=== PATIENT | female | born 1975 | race Caucasian/White ===

== ENCOUNTER 2016-04-07 08:25 | Day surgery (SDC) | payer BC, OTHER ==
[~2016-04-07 08:25] MED LIST: RINGERS SOLUTION,LACTATED 1,000 ML IV PRN
[2016-04-07] MEDS ORDERED: RINGERS SOLUTION,LACTATED 1,000 ML IV ONE (09:18)
[2016-04-07 09:44] LABS: Hematocrit 40.7 % (37.0-47.0); Hemoglobin 13.3 gm/dL (12.5-16.0); Mean Cell Volume 88.9 fl (78-100); Mean Corpuscular Hgb Conc 32.7 g/dl (32-36); Mean Platelet Volume 9.5 fl (6.0-9.5); Neutrophil # 4.4 K/mm3 (1.3-6.0); Neutrophil % 61.5 % (42-75.0); Platelet Count 471 K/mm3 (150-450); Red Blood Count 4.58 M/mm3 (4.2-5.4); Red Cell Distribution Width 13.4 % (11.5-14.0); White Blood Count 7.1 K/mm3 (4.0-10.5)
[2016-04-07] MEDS ORDERED: IBUPROFEN 600 MG TABLET PO PRN (10:34)
[2016-04-07] MEDS ORDERED: oxyCODONE HCL/ACETAMINOPHEN 1 TAB TABLET PO PRN (10:34)
--- NOTE | 2016-04-07 11:07 | OR ---
Operative Report - Dictated Report Narrative: Operative Report 04/07/16 Hysteroscopy Dilatation and Curettage Preoperative Diagnosis: Menorrhagia Postoperative Diagnosis: Menorrhagia Procedure: Hysteroscopy Dilatation and Curettage Surgeon: Virgen Rosario M.D. Anesthesia: Pancho Leal CRNA, IV sedation Findings: Uterine sound was 8 cm. There is no evidence of submucosal fibroid or endometrial polyp. Patient was at the end of her cycle today. Fluids: 400 ml EBL: Minimal Drains: None Complications: None Condition: Stable Pathology: Endometrial curettings Procedure: The patient was taken to the operating room with IV fluids running. She was placed in the dorsal lithotomy position after anesthesia was induced. A bivalve speculum was placed in the vagina. The anterior lip of the cervix was grasped with a single-tooth tenaculum. Uterine sound was passed into the endometrial cavity with ease. Uterine sound was 8 cm. The cervix was dilated with Garcia dilators. The hysteroscope was introduced into the endometrial cavity. The cavity was distended with normal saline. [place] were visualized bilaterally. There is no evidence of submucosal fibroid or endometrial polyp. The hysteroscope was removed. The cavity was sharply curetted without difficulty. The hysteroscope was once again introduced into the cavity. The cavity was completely curetted. The hysteroscope was removed. The single- tooth tenaculum was removed. Sites were hemostatic. The speculum was removed from the vagina. Sponge counts were correct 2. The patient tolerated the procedure well.
[2016-04-07 11:41] VITALS: BP 148/85
== END 2016-04-07 08:26 | disposition home or self-care (01) ==
LOC: AMB 08:25
PROVIDERS: ATTEND Obstetrics & Gynecology
PROC: 0UDB8ZX Extraction of Endometrium, Via Natural or Artificial Opening Endoscopic, Diagnostic (ICD-10-PCS; principal; 2016-04-07 10:05)
DX: N92.0 Excessive and frequent menstruation with regular cycle (principal); I10 Essential (primary) hypertension; J45.909 Unspecified asthma, uncomplicated; K21.9 Gastro-esophageal reflux disease without esophagitis; Z68.33 Body mass index [BMI] 33.0-33.9, adult

== ENCOUNTER 2016-06-21 04:43 | Emergency (ER) | payer BC ==
[2016-06-21] MEDS ORDERED: METOPROLOL TARTRATE 25 MG TABLET PO ONE (05:27)
[2016-06-21] MEDS ORDERED: METOPROLOL TARTRATE 25 MG TABLET ONE (05:29)
[2016-06-21] MEDS ORDERED: KETOROLAC TROMETHAMINE 30 MG/ML VIAL IM ONE (06:29)
[2016-06-21] MEDS ORDERED: KETOROLAC TROMETHAMINE 30 MG/ML VIAL ONE (06:33)
[2016-06-21 06:59] VITALS: BP 158/98
--- NOTE | 2016-06-21 07:03 | ERNOTE ---
Headache ER HPI - Narrative Date of Service: 06/21/16 - General Presenting Symptoms: headache, facial pain, "migraine", other - photophobia Time Seen by Provider: 06/21/16 04:57 Source: patient Exam Limitations: no limitations - Immun/Allergies/Home Medications Immunizations: IMMUNIZATION HX Immunizations Up to Date Yes History of Influenza Vaccine No Hx Pneumococcal Vaccination No Allergies/Adverse Reactions: Allergies pecan nut Allergy (Mild, Verified 04/07/16 08:51) Hives wheat Allergy (Mild, Verified 04/07/16 08:51) Hives adhesive tape Adverse Reaction (Mild, Verified 04/07/16 08:51) RASH lactose Adverse Reaction (Mild, Verified 04/07/16 08:51) GI latex Adverse Reaction (Mild, Verified 04/07/16 08:51) RASH STAINLESS STEEL Allergy (Intermediate, Uncoded 04/07/16 08:51) EDEMA Home Medications: HOME MEDICATIONS Ibuprofen [Motrin] 800 mg PO BID PRN 04/02/16 [Last Taken Unknown] L.acidoph,Paracasei, B.lactis [Probiotic] 2 each PO DAILY 04/02/16 [Last Taken Unknown] Ibuprofen [Motrin] 600 mg PO Q6H PRN #30 tab 04/07/16 [Last Taken Unknown] Loratadine 05/26/16 [Last Taken Unknown] Senna [place] 05/26/16 [Last Taken Unknown] Xulane Patch 05/26/16 [Last Taken Unknown] Nabumetone [Relafen] 500 mg PO BID #30 tab 06/21/16 [Last Taken Unknown] - History of Present Illness Narrative: Patient here for evaluation of severe barrientos, frontal with left sided pressure and worsening with movement. Patient has hx of Cervical stenosis. Review of Systems - Narrative Narrative: Repeat blood pressure was 155/89. Will monitor for further lowering blood pressure - Review of Systems Constitutional: Present: no symptoms reported, decreased activity level ENT: Present: no symptoms reported Cardiology: Present: no symptoms reported Gastrointestinal/Abdominal: Present: no symptoms reported Genitourinary: Present: no symptoms reported Musculoskeletal: Present: neck pain, other - known joint disease Neurological: Present: no symptoms reported Endocrine: Present: no symptoms reported Hematologic/Lymphatic: Present: no symptoms reported Psych: Present: no symptoms reported - Narrative Narrative: Patient does not have a pattern of chronic migraines. Most recently had increased, and describes some neck pain and degen disease in cervical spine. - Patient's Past Medical History Patient History - Medical: No pertinent hx, GERD, Other Patient History - Cardiac/Respiratory: No pertinent hx, Asthma, Hypertension, Other Patient History - Cancer: No Hx of Cancer Patient History - Surgical Procedures: Appendectomy, Cholecystectomy, , Tubal Ligation Patient History - Other: None LMP (Calendar): 03/31/16 - Family History Mother Family History - Medical: Diabetes Type 2, Hypothyroidism Family History - Cardiac/Respiratory: Hypertension, Hyperlipidemia, Myocardial Infarction, Other Family History - Cancer: No pertinent family hx Father Family History - Medical: , Other Family History - Cardiac/Respiratory: No pertinent hx Family History - Cancer: History Unknown Sister Family History - Medical: Diabetes Type 1, Fibromyalgia, Other Family History - Cardiac/Respiratory: Hypertension, Hyperlipidemia, Myocardial Infarction, Other Family History - Cancer: Other Brother Family History - Medical: Migraines Family History - Cardiac/Respiratory: No pertinent hx Family History - Cancer: No pertinent family hx - Social History Living Situations: home Abuse History: No History of abuse Psych History: No pertinent hx Smoking Status: Never smoker Alcohol Use: occasionally Drug Use: none - Immunizations Immunizations Up to Date: Yes Hx Pneumococcal Vaccination: No History of Influenza Vaccine: No Physical Exam - Physical Exam General Appearance: Present: wd/wn, alert, no apparent distress, mild distress Eye Exam: Normal inspection: bilateral, PERRL: bilateral, EOMI: bilateral Ears, Nose, Throat: Present: normal ENT inspection Neck: Present: normal inspection Respiratory: Present: no respiratory distress, normal breath sounds Cardiovascular/Chest: Present: regular rate, rhythm, no murmur Gastrointestinal/Abdominal: Present: normal bowel sounds, nontender, nondistended Rectal Exam: Present: deferred Back Exam: Present: normal inspection, normal range of motion, no CVA tenderness Extremity Exam: Present: normal inspection, non-tender, normal range of motion Neurological Exam: Present: alert, oriented, normal mood/affect, no motor/ sensory deficits Skin Exam: Present: normal color, warm/dry Lymphatic Exam: Present: no adenopathy Pelvic Exam: Present: deferred ED Progress - Date and Time Seen: Date and Time: 06/21/16 06:40 Patient continued with pain, blood pressure remains slightly elevated still, Cervical spine xrays reviewed with patient. Patient was advised to stop ibuprofen due to rebound headaches and renal effects and possible effect on blood pressure, rx for relafen will be written for pain control. - Vital Signs Patient's Vital Signs:: I have reviewed the patient's vital signs. Vital Signs: Vital Signs 06/21/16 04:46 Temperature 37.3 C Pulse Rate 103 H Respiratory 18 Rate O2 Sat by Pulse 98 Oximetry - X-Ray X-Ray #1 X-Ray: c-spine Interpretation: Interp. by me, Reviewed by me - findings discussed with patient - Progress/Reassessment Chief Complaint: Headache Progress:: Improved Plan - Plan Plan: Patient is stable for discharge to home. Departure Clinical Impression: Elevated BP without diagnosis of hypertension, Cervical (neck) region somatic dysfunction Headache Qualifiers: Headache type: tension-type Headache chronicity pattern: episodic headache Intractability: intractable Qualified Code(s): G44.211 - Episodic tension-type headache, intractable - Departure Disposition: Home self-care Instructions: Tension Headache, [id number], Cervical Radiculopathy, Degenerative Disk Disease Print Language: Dominican Additional Instructions: you were treated today with the following medications: Metoprolol 25 mg for your blood pressure and a related medication propranolol may be used to control migraines. Your pain was treated with ketorolac for pain control. A prescription for relafen has been provided for short term relief of headache it is recommended you follow up with Dr. Cortes for continued care and evaluation. Continue to monitor your blood pressures and record those for Dr. Cortes Your cervical spine film results have been discussed and require follow up with Dr. Cortes as well. Rest and continue to drink plenty of fluids. Referrals: Zenaida Cortes MD [Primary Care Provider] - Prescriptions: Nabumetone [Relafen] 500 mg PO BID #30 tab
== END 2016-06-21 06:59 | disposition home or self-care (01) ==
LOC: ER 04:43
DX: G44.211 Episodic tension-type headache, intractable (principal); R03.0 Elevated blood-pressure reading, without diagnosis of hypertension; M99.01 Segmental and somatic dysfunction of cervical region

== ENCOUNTER 2016-06-25 10:00 | Emergency (ER) | payer BC ==
[2016-06-25] MEDS ORDERED: LABETALOL HCL 5 MG/ML VIAL IV ONE (10:17)
[2016-06-25 10:26] LABS: Hematocrit 38.4 % (37.0-47.0); Hemoglobin 12.7 gm/dL (12.5-16.0); Mean Cell Volume 86.5 fl (78-100); Mean Corpuscular Hemoglobin 28.6 pg (27-31); Mean Corpuscular Hgb Conc 33.1 g/dl (32-36); Mean Platelet Volume 9.4 fl (6.0-9.5); Neutrophil # 3.4 K/mm3 (1.3-6.0); Neutrophil % 55.3 % (42-75.0); Platelet Count 451 K/mm3 (150-450); Red Blood Count 4.44 M/mm3 (4.2-5.4); White Blood Count 6.2 K/mm3 (4.0-10.5)
[2016-06-25 10:36] LABS: Prothrombin Time (Patient) 10.6 Seconds (9.4-11.4)
[2016-06-25 10:39] LABS: INR 1.02 INR (0.90-1.10); Partial Thrombolplastin Time 25.8 Seconds (24-32)
[2016-06-25 10:43] LABS: ALT 28 U/L (19-67); AST 24 U/L (0-48); Albumin * 3.5 gm/dl (3.4-5.0); Alkaline Phosphatase * 42 U/L (50-170); Anion Gap 14.1 mmol/L (6.8-13.8); BUN/Creatinine Ratio 18.1 (9.0-21.6); Bilirubin, Total 0.3 mg/dL (0.0-1.1); Blood Urea Nitrogen 15 mg/dL (3-23); Ca. Corrected For Albumin 8.7 mg/dL (8.4-10.2); Calcium * 8.6 mg/dL (7.9-10.9); Carbon Dioxide 26.7 mmol/L (24-32.6); Chloride 102 mmol/L (97-106); Glucose * 178 mg/dL (70-110); Potassium 3.8 mmol/L (3.4-4.6); Sodium 139 mmol/L (132-142); Total Protein 7.7 gm/dL (6.2-8.2); Troponin I Less than 0.017 ng/ml (0.00-0.10)
--- OUTSIDE RECORDS SUMMARY | 2016-06-25 10:58 | XMS REPORT | Continuity of Care Document ---
:1975 Author Organization [facility] ([facility]) Address [address] [place] [address] Phone [phone] Care Team Providers Name Role Phone Zenaida Cortes Primary Care Provider [phone] Source Comments This disclosure is being made pursuant to the Care Everywhere program, applicable federal and state laws, and may not contain all informaitonavailable regarding this patient.[facility] ([facility]) Active Allergies and Adverse Reactions Allergen Noted Date Severity Reactions Comments Adhesive Tape-Silicones 06/21/2016 Blisters Can tolerate paper tape/tegaderm. Latex 06/21/2016 Blisters Milk 06/21/2016 Diarrhea Other Agent 06/21/2016 OTHER Stainless Steel - Localized swelling with surgical jony Pecan Nut 06/21/2016 Urticaria (Hives) Current Medications Not on file Active Problems Not on file Most Recent Encounters Date Type Specialty Providers Description 06/21/2016 Hospital Encounter Emergency Medicine Nathalie Aly MD Dx: Other complicated headache syndrome (Primary Dx) Social History Tobacco Use Types Packs/Day Years Used Date Never Smoker Smokeless Tobacco: Never Used Alcohol Use Drinks/Week oz/Week Comments Yes Occasionally Last Filed Vital Signs Vital Sign Reading Time Taken Blood Pressure 155/112 06/21/2016 12:38 PM CDT Pulse 99 06/21/2016 12:38 PM CDT Temperature 37.1 C (98.8 F) 06/21/2016 12:38 PM CDT Respiratory Rate 20 06/21/2016 12:38 PM CDT Height 1.626 m (5' 4.02") 06/21/2016 12:53 PM CDT Weight 88.451 kg (195 lb) 06/21/2016 12:53 PM CDT Body Mass Index 33.46 06/21/2016 12:53 PM CDT Oxygen Saturation 100% 06/21/2016 12:38 PM CDT Plan of Care Health Maintenance Due Date Last Done Comments Hepatitis B Vaccine (1 of 3 - Primary Series) 1975 Tdap Vaccine 1985 Lipid Disorder Screening 1992 MMR Vaccine 1992 Td Vaccine 1992 Cervical Cancer Screening 2004 Mammogram 2014 Influenza Vaccine: Seasonal (Season Ended) 2016 Results from Last [address] BRAIN WO CONTRAST (61407) (06/21/2016 1:40 PM) Impressions Impression: No acute intracranial findings. This final report is in agreement with the critical and emergent preliminary findings reported by the vice president quality packer insulation. Narrative Procedure: CT BRAIN WO CONTRAST (42285) Indication: Sudden onset headache. Technique: Axial CT of the brain without IV contrast. Sagittal and coronal reformations are also provided for review. Comparison: None Findings: There is no evidence of acute large vascular distribution infarct, mass lesion or hemorrhage. The ventricles, cortical sulci and basal cisterns are symmetric and age appropriate. Normal brainstem and posterior fossa. No calvarial fractures. Procedure Note Anton, Incoming Imaging Results - WedJun 22, 2016 9:30 AM CDT Procedure: CT BRAIN WO CONTRAST (83512) Indication: Sudden onset headache. Technique: Axial CT of the brain without IV contrast. Sagittal and coronal reformations are also provided for review. Comparison: None Findings: There is no evidence of acute large vascular distribution infarct, mass lesion or hemorrhage. The ventricles, cortical sulci and basal cisterns are symmetric and age appropriate. Normal brainstem and posterior fossa. No calvarial fractures. IMPRESSION Impression: No acute intracranial findings. This final report is in agreement with the critical and emergent preliminary findings reported by the vice president quality packer insulation. DIFFERENTIAL (06/21/2016 1:24 PM) Component Value Range % Neutrophils-Auto Diff 57.1 % Neutrophils-Auto Diff 4360 9191-7919 /MM3 % Lymphocytes-Auto Diff 29.1 % Lymphocytes-Auto Diff 2220 875-3300 /MM3 % Monocytes-Auto Diff 11.4 % Monocytes-Auto Diff 870(H) 130-860 /MM3 % Eosinophils-Auto Diff 1.6 % Eosinophils-Auto Diff 120 40-390 /MM3 % Basophils 0.7 % Basophils-Auto Diff 50 10-136 /MM3 % Immature Granulocytes-Auto Diff 0.1 % Immature Granulocytes-Auto Diff 10 /MM3 Specimen Whole Blood CBC (COMPLETE BLOOD COUNT) (06/21/2016 1:24 PM) Component Value Range WBC Count 7.6 3.7-10.5 K/MM3 RBC Count 4.69 4.00-5.20 M/MM3 Hemoglobin 13.4 11.9-15.5 g/dL Hematocrit 41 35-47 % MCV (Mean Corpuscular Volume) 87 82-99 FL MCH (Mean Corpuscular Hemoglobin) 29 25-35 PG MCHC (Mean Corpuscular Hemoglobin Concentration) 33 32-36 % Platelet Count 449(H) 150-400 K/MM3 MPV (Mean Platelet Volume) 9.4 9.4-12.3 FL RBC Dist Width-STD 41.6 36.4-46.3 FL RBC Distrib Width 13.2 9.0-14.5 % Nucleated RBC 0 /100 WBC Specimen Whole Blood BASIC METABOLIC PANEL W/ CALCIUM (CHEM 8) (06/21/2016 1:24 PM) Component Value Range Sodium 140 135-145 mEq/L Potassium 3.8 3.5-5.0 mEq/L Chloride 101 95-107 mEq/L CO2 25 22-29 mEq/L BUN 9(L) 10-20 mg/dL Creatinine 0.6Comment: 0.5-1.0 mg/dL Creatinine switched to enzymatic method on 07/22/2010.GFR equation switched to IDMS-traceable MDRD equation on 07/22/2010. Calculated GFR values are not valid in clinical settings where serum creatinine is changing. Glucose 114(H)Comment: 65-99 mg/dL The Expert Committee on the Diagnosis and Classification of Diabetes has defined impaired fasting glucose as greater than or equal to 100 mg/dL but less than 126 mg/dL.(Diabetes Care 28 (Suppl 1)S41,2005) Calcium 9.1 8.5-10.5 mg/dL Anion Gap 14 mEq/L Calculated GFR >90 >60 mL/min/1.73 m2 Specimen Blood PT/INR (PROTHROMBIN TIME/INR) VENOUS (06/21/2016 1:24 PM) Component Value Range PT (Prothrombin Time) 10 9-12 secs INR 0.9 <4.0 Specimen Blood PTT (PARTIAL THROMBOPLASTIN TIME) (06/21/2016 1:24 PM) Component Value Range PTT 23 22-31 secs Specimen Blood CBC WITH DIFFERENTIAL (06/21/2016 1:24 PM) Specimen Whole Blood Narrative The following orders were created for panel order CBC WITH DIFFERENTIAL. Procedure Abnormality Status --------- ------ CBC (COMPLETE BLOOD COUNT)[[id number]] AbnormalFinal result DIFFERENTIAL[[id number]] AbnormalFinal result Please view results for these tests on the individual orders.
--- NOTE | 2016-06-25 12:25 | ERNOTE ---
Chest Pain/Cardiac HPI Date of Service: 06/25/16 Chief Complaint: Chest Pain Time Seen by Provider: 06/25/16 10:23 Source: patient Exam Limitations: no limitations Immunizations: IMMUNIZATION HX Immunizations Up to Date Yes History of Influenza Vaccine No Hx Pneumococcal Vaccination No Allergies/Adverse Reactions: Allergies pecan nut Allergy (Mild, Verified 06/25/16 10:47) Hives wheat Allergy (Mild, Verified 06/25/16 10:47) Hives adhesive tape Adverse Reaction (Mild, Verified 06/25/16 10:47) RASH lactose Adverse Reaction (Mild, Verified 06/25/16 10:47) GI latex Adverse Reaction (Mild, Verified 06/25/16 10:47) RASH STAINLESS STEEL Allergy (Intermediate, Uncoded 06/25/16 10:47) EDEMA Home Medications: HOME MEDICATIONS L.acidoph,Paracasei, B.lactis [Probiotic] 1 each PO DAILY 06/25/16 [Last Taken Unknown] Loratadine [Claritin] 25 mg PO DAILY 06/25/16 [Last Taken Unknown] Metoprolol Succinate [Toprol Xl] 50 mg PO DAILY 06/25/16 [Last Taken Unknown] Senna [place] [Senna Leaves] 454 gm PO DAILY 06/25/16 [Last Taken Unknown] Narrative: 40-year-old female presents to the emergency room for left-sided chest pain. Female states that this chest pain started yesterday at 10:00 PM and has progressively gotten worse. Patient states that she is frequently checking her blood pressure all night and morning in regards to her chest pain. One near- syncopal episode while at home and after that she did call 911. Patient states that she had one episode of rapid heartbeat as well as a ambulance that lasted less than 5 seconds per EMS Date (Duration): 06/25/16 Timing: intermittent Severity/Quality: pressure Location: central Chest Pain Radiation: no radiation, shoulders - left Activities at Onset: none Modifying Factors - Improves: Absent: nitroglycerin Nitro Today/Relief: 0.4 mg x 1, provided by ED Aspirin Treatment Today: 81 mg x 4, provided at home Associated Symptoms: Absent: shortness of breath, palpitations, nausea, vomiting , abdominal pain, weakness, back pain Prior Chest Pain/Cardiac Workup: Reports: prior chest pain Review of Systems - Review of Systems Constitutional: Present: no symptoms reported EYE: Present: no symptoms reported ENT: Present: no symptoms reported Respiratory: Present: no symptoms reported Cardiology: Present: See HPI, chest pain Gastrointestinal/Abdominal: Present: no symptoms reported Genitourinary: Present: no symptoms reported Musculoskeletal: Present: joint pain - dislocated AC of left shoulder that she is currently recieving therapy for. Skin: Present: no symptoms reported Neurological: Present: anxiety Endocrine: Present: no symptoms reported Hematologic/Lymphatic: Present: no symptoms reported Psych: Present: no symptoms reported - Patient's Past Medical History Patient History - Medical: No pertinent hx, GERD, Other Patient History - Cardiac/Respiratory: No pertinent hx, Asthma, Hypertension, Other Patient History - Cancer: No Hx of Cancer Patient History - Surgical Procedures: Appendectomy, Cholecystectomy, , Tubal Ligation Patient History - Other: None LMP (females 10-50): now LMP (Calendar): 03/31/16 - Family History Mother Family History - Medical: Diabetes Type 2, Hypothyroidism Family History - Cardiac/Respiratory: Hypertension, Hyperlipidemia, Myocardial Infarction, Other Family History - Cancer: No pertinent family hx Father Family History - Medical: , Other Family History - Cardiac/Respiratory: No pertinent hx Family History - Cancer: History Unknown Sister Family History - Medical: Diabetes Type 1, Fibromyalgia, Other Family History - Cardiac/Respiratory: Hypertension, Hyperlipidemia, Myocardial Infarction, Other Family History - Cancer: Other Brother Family History - Medical: Migraines Family History - Cardiac/Respiratory: No pertinent hx Family History - Cancer: No pertinent family hx - Social History Living Situations: home Abuse History: No History of abuse Psych History: No pertinent hx Smoking Status: Never smoker Have you smoked in the past 12 months: No Alcohol Use: occasionally Drug Use: none - Immunizations Immunizations Up to Date: Yes Hx Pneumococcal Vaccination: No History of Influenza Vaccine: No Physical Exam - Physical Exam Narrative: This 40 year old female appears very anxious, states that she was up most of the night checking her blood pressure because she was worried about her becoming too high. Patient stated her chest pain started last night about 10: 00 she assumed it was from her left nonhealing AC joint dislocation. Patient states that she had a near-syncopal episode today. Patient's vital signs are stable. General Appearance: Present: alert, anxious Eye Exam: Normal inspection: bilateral Ears, Nose, Throat: Present: normal ENT inspection Neck: Present: normal inspection, nontender Respiratory: Present: no respiratory distress, normal breath sounds, no accessory muscle use, lungs clear Cardiovascular/Chest: Present: tachycardia Gastrointestinal/Abdominal: Present: normal bowel sounds, nontender, soft Back Exam: Present: normal inspection, normal range of motion, no vertebral tenderness Extremity Exam: Present: normal inspection Neurological Exam: Present: alert, oriented, normal mood/affect, no motor/ sensory deficits, wrecking mechanic II-XII nml as tested Skin Exam: Present: normal color, warm/dry Lymphatic Exam: Present: no adenopathy ED Progress - Results and Orders Patient's Lab Results:: I have reviewed the patient's lab results. Results and Orders: negative at this time - Vital Signs Vital Signs: Vital Signs 06/25/16 06/25/16 06/25/16 10:01 10:29 10:36 Temperature 37.9 C H Pulse Rate 111 H 110 H 97 Respiratory 14 16 Rate Blood Pressure 170/108 148/93 156/95 O2 Sat by Pulse 99 97 Oximetry 06/25/16 06/25/16 06/25/16 10:48 11:13 11:30 Temperature Pulse Rate 97 91 88 Respiratory 13 13 Rate Blood Pressure 143/87 138/95 O2 Sat by Pulse 97 96 Oximetry - EKG EKG read: Reviewed by me EKG Comments: Interpreted by the ER attending. - X-Ray X-Ray #1 X-Ray: chest Interpretation: Reviewed by me X-ray Comments: Findings: The cardiac silhouette is within normal limits of size. The mediastinum and hilum are with in normal limits. The lung simon are clear. I do not see evidence for an infiltrate, effusion or pulmonary edema. IMPRESSION: 1. NO ACUTE CARDIOPULMONARY PROCESS. Electronically signed by Gibran Mccoy M.D.. - Progress/Reassessment Chief Complaint: Chest Pain Progress:: Improved Plan - Plan Plan: patient is to follow up with her PCP regarding her BP and anxiety Departure - Departure Clinical Impression: Pre-syncope Hypertension Qualifiers: Hypertension type: unspecified secondary hypertension Qualified Code(s): I15.9 - Secondary hypertension, unspecified Disposition: Home Follow Up Needed Condition: Stable Instructions: Near-Syncope, [id number], Hypertension, [id number] Additional Instructions: Continue previous home medications as directed by her doctor and notify her doctor being in the emergency room. Follow-up with her doctor in the next 2-3 days. Return to the emergency room if symptoms persist or new symptoms arise. Referrals: Zenaida Cortes MD [Primary Care Provider] -
[2016-06-25 14:08] VITALS: BP 117/96
== END 2016-06-25 14:08 | disposition home or self-care (01) ==
LOC: ER 10:00
DX: R55 Syncope and collapse (principal); I15.9 Secondary hypertension, unspecified

== ENCOUNTER 2016-12-25 13:53 | Emergency (ER) | payer BC ==
[2016-12-25] MEDS ORDERED: IBUPROFEN 600 MG TABLET PO ONE (14:23)
[2016-12-25] MEDS ORDERED: IBUPROFEN 600 MG TABLET ONE (14:29)
--- NOTE | 2016-12-25 14:29 | ERNOTE ---
Chest Pain/Cardiac HPI Date of Service: 12/25/16 Chief Complaint: Palpitations Time Seen by Provider: 12/25/16 14:09 Source: patient, RN notes reviewed Exam Limitations: no limitations Immunizations: IMMUNIZATION HX Immunizations Up to Date No History of Influenza Vaccine No Hx Pneumococcal Vaccination No Allergies/Adverse Reactions: Allergies adhesive tape Allergy (Mild, Verified 12/25/16 14:18) RASH latex Allergy (Mild, Verified 12/25/16 14:18) RASH pecan nut Allergy (Mild, Verified 06/25/16 10:47) Hives wheat Allergy (Mild, Verified 06/25/16 10:47) Hives Influenza Virus Vaccines Allergy (Verified 12/25/16 14:18) lactose Adverse Reaction (Mild, Verified 06/25/16 10:47) GI STAINLESS STEEL Allergy (Intermediate, Uncoded 12/25/16 14:18) Hives Home Medications: HOME MEDICATIONS Metoprolol Succinate [Toprol Xl] 50 mg PO DAILY 06/25/16 [Last Taken Unknown] Narrative: Nazia is a 40 year old female who was sent to the ER from the walk in clinic where she had presented for a fever that began this morning. She was noted to be tachycardic and thought to possibly be in A fib so she was sent here. She also reports a sore throat, headache, ear pain and swollen lymph nodes that began today as well. She had noticed her heart "fluttering" yesterday, and this has continued intermittently today. She has not taken anything for her symptoms. Her daughter is ill as well. She tested positive for strep. Date (Duration): 12/25/16 Prior Treatment: Denies: recently seen Review of Systems - Review of Systems Constitutional: Present: fever, fatigue, malaise. Absent: chills EYE: Absent: eye pain, eye discharge ENT: Present: ear pain, nose congestion, sore throat. Absent: ear discharge, nasal drainage Respiratory: Absent: cough, wheezing Cardiology: Absent: chest pain, syncope Gastrointestinal/Abdominal: Absent: nausea, abdominal pain Genitourinary: Present: no symptoms reported Musculoskeletal: Absent: muscle pain, joint pain Skin: Absent: rash, lesions Neurological: Present: headache. Absent: dizziness/light-headedness Endocrine: Present: no symptoms reported Hematologic/Lymphatic: Present: no symptoms reported Psych: Present: no symptoms reported - Patient's Past Medical History Patient History - Medical: GERD, Other, Other Patient History - Cardiac/Respiratory: Asthma, Hypertension, Other, Other Patient History - Cancer: No Hx of Cancer Patient History - Surgical Procedures: Appendectomy, Cholecystectomy, , D & C Patient History - Other: None - Family History Mother Family History - Medical: Diabetes Type 2, Hypothyroidism Family History - Cardiac/Respiratory: Hypertension, Hyperlipidemia, Myocardial Infarction, Other Family History - Cancer: No pertinent family hx Father Family History - Medical: , Other Family History - Cardiac/Respiratory: No pertinent hx Family History - Cancer: History Unknown Sister Family History - Medical: Diabetes Type 1, Fibromyalgia, Other Family History - Cardiac/Respiratory: Hypertension, Hyperlipidemia, Myocardial Infarction, Other Family History - Cancer: Other Brother Family History - Medical: Migraines Family History - Cardiac/Respiratory: No pertinent hx Family History - Cancer: No pertinent family hx - Social History Living Situations: home Abuse History: No History of abuse Psych History: No pertinent hx Smoking Status: Never smoker Have you smoked in the past 12 months: No Do you dip or chew tobacco: No Alcohol Use: rarely Drug Use: none - Immunizations Immunizations Up to Date: No Hx Pneumococcal Vaccination: No History of Influenza Vaccine: No Physical Exam - Physical Exam General Appearance: Present: wd/wn, alert, no apparent distress Head Exam: Present: normal inspection Eye Exam: Normal inspection: bilateral Ears, Nose, Throat: Present: pharyngeal erythema, tonsillar swelling - mild. Absent: abnormal TM (R), abnormal TM (L), nasal congestion, sinus pain/drainage Neck: Present: supple, full range of motion, lymphadenopathy (R), lymphadenopathy (L), tender lateral Respiratory: Present: no respiratory distress, normal breath sounds, no accessory muscle use, lungs clear Cardiovascular/Chest: Present: regular rate, rhythm, no murmur Extremity Exam: Present: normal inspection, normal range of motion, no edema Neurological Exam: Present: alert, oriented, normal mood/affect, no motor/ sensory deficits Skin Exam: Present: normal color, warm/dry ED Progress - Results and Orders Patient's Lab Results:: I have reviewed the patient's lab results. - Vital Signs Patient's Vital Signs:: I have reviewed the patient's vital signs. Vital Signs: Vital Signs 12/25/16 12/25/16 13:55 14:02 Temperature 37.6 C H 37.6 C H Pulse Rate 101 H 101 H Respiratory 15 15 Rate Blood Pressure 150/95 150/95 O2 Sat by Pulse 100 100 Oximetry - EKG EKG: NSR EKG read: Reviewed by me - Progress/Reassessment Chief Complaint: Palpitations Progress:: Improved Plan - Plan Plan: EKG shows a NSR. Patient has palpitations and tachycardia in the past. She is on Metoprolol and is followed by Dr. Aly for this. I suspect that the palpitations are currently related to her fever and URI. Discussed f/u if symptoms continue/worsen. Patient in agreement with plan. Departure Clinical Impression: Upper respiratory infection, viral, Palpitations - Departure Disposition: Home Follow Up Needed Condition: Good Instructions: Upper Respiratory Infection, Adult, [id number] Additional Instructions: Continue your current medication Drink plenty of water Tylenol and/or ibuprofen for fever Follow up with your doctor or return to the ER if symptoms worsen Referrals: Zenaida Cortes MD [Primary Care Provider] -
[2016-12-25 15:15] VITALS: BP 146/89
== END 2016-12-25 15:00 | disposition home or self-care (01) ==
LOC: ER 13:53
DX: J06.9 Acute upper respiratory infection, unspecified (principal); R00.2 Palpitations

== ENCOUNTER 2018-01-27 13:49 | Observation (INO) ==
--- NOTE | 2018-01-27 14:26 | ERNOTE ---
Chest Pain/Cardiac HPI Date of Service: 01/27/18 Chief Complaint: Chest Pain Time Seen by Provider: 01/27/18 14:08 Source: patient Exam Limitations: no limitations Immunizations: IMMUNIZATION HX Immunizations Up to Date Yes History of Influenza Vaccine No Hx Pneumococcal Vaccination No Allergies/Adverse Reactions: Allergies adhesive tape Allergy (Mild, Verified 01/27/18 15:49) RASH latex Allergy (Mild, Verified 01/27/18 15:49) RASH pecan nut Allergy (Mild, Verified 01/27/18 15:49) Hives wheat Allergy (Mild, Verified 01/27/18 15:49) Hives Influenza Virus Vaccines Allergy (Verified 01/27/18 15:49) lactose Adverse Reaction (Mild, Verified 01/27/18 15:49) GI STAINLESS STEEL Allergy (Intermediate, Uncoded 01/27/18 15:49) Hives Home Medications: HOME MEDICATIONS Loratadine [Allergy Relief] 10 mg PO DAILY 07/02/17 [Last Taken Unknown] Lactobacillus 40-Bifidobact 3-S.thermophilus 100 billion cell capsule 2 cap PO .COMPLEX cap 09/24/17 [Last Taken Unknown] diphenhydramine 25 mg capsule 25 mg PO HS PRN 09/24/17 [Last Taken Unknown] estradiol 1 mg tablet 1 mg PO DAILY 09/24/17 [Last Taken Unknown] ibuprofen 800 mg tablet 800 mg PO BID PRN tab 09/24/17 [Last Taken Unknown] ranitidine 150 mg tablet 150 mg PO BID 09/24/17 [Last Taken Unknown] metoprolol succinate ER 100 mg tablet,extended release 24 hr 100 mg PO DAILY #30 tab 10/29/17 [Last Taken Unknown] clindamycin 1 % lotion 1 applic TP BID 12/30/17 [Last Taken Unknown] magnesium hydroxide 400 mg/5 mL oral suspension 5 ml PO HS PRN 12/30/17 [Last Taken Unknown] Doxycycline Hyclate 100 mg PO BID 01/27/18 [Last Taken Unknown] tiZANidine HCL [Tizanidine HCl] 4 mg PO HS 01/27/18 [Last Taken Unknown] Pain Score #1 Pain Score: 5 Narrative: The patient is a 42 year old female who presents for left anterior and lateral chest pain which has been present since last evening. There are associated symptoms of fatigue. The patient reports left lateral and anterior chest pain, 5/10. There are no alleviating factors. There are no aggravating factors. Previous treatments have included: none. The past medical history includes: asthma, GERD, HTN and Hepatitis B. The social history is negative. The patient has had no ill contacts. Patient states she began to feel increase fatigue with episode of diarrhea last evening. Patient states she has had similar symptoms in the past with palpitations followed by chest discomfort the following day. Timing: constant Severity/Quality: aching, tightness Location: back, left chest Chest Pain Radiation: neck, shoulders Activities at Onset: rest Modifying Factors - Improves: Present: nothing Modifying Factors - Worsens: Present: nothing Nitro Today/Relief: no nitro taken today Aspirin Treatment Today: no aspirin today - patient has CALIXTO scheduled for tomorrow am 01/28/18 Associated Symptoms: Present: headache, nausea. Absent: syncope, cough, shortness of breath, fever/chills, vomiting, abdominal pain Review of Systems - Review of Systems Constitutional: Present: fatigue. Absent: recent illness, fever EYE: Present: no symptoms reported ENT: Present: no symptoms reported. Absent: ear pain, nasal drainage, sore throat Respiratory: Present: no symptoms reported. Absent: shortness of breath, cough Cardiology: Present: chest pain, palpitations. Absent: edema Gastrointestinal/Abdominal: Present: nausea, diarrhea. Absent: vomiting, abdominal pain Genitourinary: Present: no symptoms reported. Absent: dysuria Musculoskeletal: Present: back pain Skin: Present: no symptoms reported. Absent: rash Neurological: Present: headache Endocrine: Present: no symptoms reported Hematologic/Lymphatic: Present: no symptoms reported Psych: Present: no symptoms reported All Other Systems: All systems neg except as marked Medical History (Last Reviewed 01/27/18 @ 14:19 by KATIE Benitez) Hypertension (Acute) Onset Date: Unknown GERD (gastroesophageal reflux disease) (Acute) Onset Date: Unknown Asthma (Acute) Onset Date: Unknown Abnormal Pap smear of cervix Onset Date: Unknown Gallbladder disease Onset Date: Unknown Hepatitis B Onset Date: Unknown Low back pain Onset Date: Unknown Menorrhagia Onset Date: Unknown Neck pain Onset Date: Unknown Ovarian cyst, bilateral Onset Date: Unknown Palpitations Onset Date: Unknown Thyroid nodule Onset Date: Unknown UTI (urinary tract infection) Onset Date: Unknown Yeast infection Onset Date: Unknown recurrent Surgical History: Surgical History (Last Reviewed 01/27/18 @ 14:19 by KATIE Benitez) H/O section Onset Date: ~2001 H/O dilation and curettage Onset Date: ~2016 H/O tubal ligation Onset Date: ~2001 History of appendectomy Onset Date: ~2009 History of hysteroscopy Onset Date: Unknown Hx laparoscopic cholecystectomy Onset Date: ~2015 Status post fine needle aspiration Onset Date: ~2004 Family History: Family History (Last Reviewed 01/27/18 @ 14:19 by KATIE Benitez) Brother Migraines Father , age 55 AIDS (acquired immune deficiency syndrome) Brain tumor Mother Hypertension Hyperlipemia Hypothyroidism Myocardial infarction Diabetes Sister Hyperlipemia Myocardial infarction Bipolar disorder Diabetes PCOS (polycystic ovarian syndrome) Fibromyalgia Social History: Preferred Language Turkish Smoking Status Never smoker Abuse History No History of abuse Psych History No pertinent hx (Last Updated 12/30/17 @ 10:49 by Zenaida Cortes MD) No Social History Section defined Physical Exam - Physical Exam General Appearance: Present: wd/wn, alert, mild distress, obese Head Exam: Present: normal inspection Neck: Present: normal inspection, full range of motion, tender posterior midline - chronic. Absent: carotid bruit Respiratory: Present: no respiratory distress, normal breath sounds, no accessory muscle use, lungs clear, chest tenderness - reproducible left anterior and lateral chest with palpation Cardiovascular/Chest: Present: regular rate, rhythm, no murmur, extra beats - intermittent PAC Peripheral Pulses: N=norm/S=strong/W=weak/B=bound/A=absent: Radial (L): Normal Gastrointestinal/Abdominal: Present: normal bowel sounds, nontender, nondistended, soft, no organomegaly. Absent: mass Back Exam: Present: normal range of motion, other - pain over left scapula with palpation Neurological Exam: Present: alert, oriented, normal mood/affect Skin Exam: Present: normal color, warm/dry ED Progress - Date and Time Seen: Date and Time: 01/27/18 15:29 Discussed care with , will admit patient for observation chest pain. Patient see for cardiology but has never had stress testing. - Results and Orders Patient's Lab Results:: I have reviewed the patient's lab results. - Vital Signs Patient's Vital Signs:: I have reviewed the patient's vital signs. - EKG EKG: NSR - occasional PAC's EKG read: Reviewed by me EKG Comments: Reviewed with . - X-Ray X-Ray #1 X-Ray: chest Interpretation: Reviewed by me X-ray Comments: X-RAY REPORT ~[id number] RAD/Chest PA & Lateral *~ Exam Date: 01/27/2018 14:09 Ordering Physician: Suzy Whitfield HISTORY: Chest Pain. Additional history from technologist: HEART PALPITATIONS SINCE LAST NIGHT, PAIN UNDER LEFT BREAST RADIATING TO BACK AND SHOULDER SINCE THIS MORNING TECHNIQUE: PA and lateral views of the chest were obtained. 2 images. COMPARISONS: 07/02/2017 FINDINGS: Chest PA Lateral * Normal lung volumes. No consolidation or mass. No significant vascular congestion suggested. No pneumothorax or pleural fluid collections. Cardiac silhouette within normal limits. Trachea is in normal position. Bones show degenerative changes of the spine. IMPRESSION: No focal acute cardiopulmonary finding. Electronically signed by Wesly Ruiz M.D.. - Progress/Reassessment Chief Complaint: Chest Pain Progress:: Improved Departure Clinical Impression: Chest pain Qualifiers: Chest pain type: unspecified Qualified Code(s): R07.9 - Chest pain, unspecified - Departure Disposition: Still a patient Condition: Stable
[2018-01-27 14:31] LABS: Hematocrit 40.8 % (37.0-47.0); Hemoglobin 13.7 gm/dL (12.5-16.0); Mean Cell Volume 90.1 fl (78-100); Mean Corpuscular Hemoglobin 30.2 pg (27-31); Mean Corpuscular Hgb Conc 33.6 g/dl (32-36); Mean Platelet Volume 9.4 fl (8-12.5); Neutrophil # 4.8 K/mm3 (1.3-6.0); Neutrophil % 59.7 % (42-75.0); Platelet Count 338 K/mm3 (150-450); Red Blood Count 4.53 M/mm3 (4.2-5.4); Red Cell Distribution Width 12.5 % (11.5-14.0); White Blood Count 8.1 K/mm3 (4.0-10.5)
[2018-01-27 14:40] LABS: Prothrombin Time (Patient) 10.3 Seconds (9.0-11.0)
[2018-01-27 14:41] LABS: INR 1.03 INR (0.90-1.10); Partial Thrombolplastin Time 24.1 Seconds (24-32)
[2018-01-27 14:46] LABS: ALT 98 U/L (19-67); AST 42 U/L (0-48); Albumin * 3.7 gm/dl (3.4-5.0); Alkaline Phosphatase * 69 U/L (50-170); Anion Gap 9.3 mmol/L (6.8-13.8); BUN/Creatinine Ratio 17.8 (9.0-21.6); Bilirubin, Total 0.3 mg/dL (0.0-1.1); Blood Urea Nitrogen 18 mg/dL (3-23); Ca. Corrected For Albumin 8.7 mg/dL (8.4-10.2); Calcium * 8.8 mg/dL (7.9-10.9); Carbon Dioxide 27.4 mmol/L (24-32.6); Chloride 104 mmol/L (97-106); Glucose * 121 mg/dL (70-110); Potassium 3.7 mmol/L (3.4-4.6); Sodium 137 mmol/L (132-142); Total Protein 7.9 gm/dL (6.2-8.2); Troponin I Less than 0.017 ng/mL (0.00-0.10)
[2018-01-27] MEDS: NITROGLYCERIN 0.4 MG/TAB BTL SL SCH ×3 (14:48→17:55)
[2018-01-27] MEDS ORDERED: KETOROLAC TROMETHAMINE 30 MG/ML VIAL IV ONE (15:02)
[2018-01-27] MEDS ORDERED: ASPIRIN 81 MG TAB.CHEW PO ONE (15:30)
[2018-01-27] MEDS ORDERED: ROSUVASTATIN CALCIUM 20 MG TABLET PO STA (15:54)
[2018-01-27] MEDS ORDERED: ENOXAPARIN SODIUM 40 MG/0.4 ML SYRG SC SCH (17:30)
--- NOTE | 2018-01-27 17:36 | HP ---
Chief Complaint - Chief Complaint Date of Service: 01/27/18 Time of Service: 17:30 History of Present Illness: 42 morbidly obese female presented to the ER today after developing chest pain and rapid heart beat. She is followed Dr. Aly from cardiology. She states pain was in her chest, radiated up her left neck and down into her left arm. She was also nauseated. She denies becoming sweaty, leg swelling. EKG in the ER showed NS tachycardia with intermittent PACs. Pain was relieved with nitro. Initial cardiac enzymes negative, to be repeated later this evening. She received ASA, crestor. She is on a beta iron. She did not get an ACEI. She has never had a stress test. She has significant family cardiac hx including her sister who has had 4 MIs, s/p 5 stents placed, she is currently 3 years younger than the patient. Her mother also has hx of an arrhythmia. She is scheduled to see Dr. Aly in 12 days. Currently she feels well. Denies CP, sob. Her VS have been stable since arrival. Labs found to be within an acceptable range. Medical History (Last Reviewed 01/27/18 @ 16:38 by Kenaytta Mazariegos RN) Hypertension (Acute) Onset Date: Unknown GERD (gastroesophageal reflux disease) (Acute) Onset Date: Unknown Asthma (Acute) Onset Date: Unknown Abnormal Pap smear of cervix Onset Date: Unknown Gallbladder disease Onset Date: Unknown Hepatitis B Onset Date: Unknown Low back pain Onset Date: Unknown Menorrhagia Onset Date: Unknown Neck pain Onset Date: Unknown Ovarian cyst, bilateral Onset Date: Unknown Palpitations Onset Date: Unknown Thyroid nodule Onset Date: Unknown UTI (urinary tract infection) Onset Date: Unknown Yeast infection Onset Date: Unknown recurrent Surgical History: Surgical History (Last Reviewed 01/27/18 @ 16:38 by Kenyatta Mazariegos RN) H/O section Onset Date: ~2001 H/O dilation and curettage Onset Date: ~2016 H/O tubal ligation Onset Date: ~2001 History of appendectomy Onset Date: ~2009 History of hysteroscopy Onset Date: Unknown Hx laparoscopic cholecystectomy Onset Date: ~2015 Status post fine needle aspiration Onset Date: ~2004 Family History: Family History (Last Reviewed 01/27/18 @ 16:38 by Kenyatta Mazariegos RN) Brother Migraines Father , age 55 AIDS (acquired immune deficiency syndrome) Brain tumor Mother Hypertension Hyperlipemia Hypothyroidism Myocardial infarction Diabetes Sister Hyperlipemia Myocardial infarction Bipolar disorder Diabetes PCOS (polycystic ovarian syndrome) Fibromyalgia Social History: Patient Lives/Resources With Spouse Utilized Occupation Home Preferred Language Nigerian Do you have any latter day or No cultural preference? Smoking Status Never smoker Have you smoked in the past 12 No months Abuse History No History of abuse Psych History No pertinent hx Alcohol Use occasionally Drug Use none (Last Updated 12/30/17 @ 10:49 by Zenaida Cortes MD) No Social History Section defined Review Of Systems (GEN) - Review of Systems Generalized/Overall Review: Present: No Symptoms Reported EENTM: Present: No Symptoms Reported Respiratory: Present: No Symptoms Reported Cardiac: Present: Chest Pain - resovled once on the floor, Palpitations. Absent: Edema Abdominal: Present: Nausea. Absent: Vomiting Genitourinary: Present: No Symptoms Reported Musculoskeletal: Present: No Symptoms Reported Neurological: Present: No Symptoms Reported Skin: Present: No Symptoms Reported Endocrine: Present: No Symptoms Reported Immunizations: IMMUNIZATION HX Immunizations Up to Date Yes History of Influenza Vaccine No Hx Pneumococcal Vaccination No Allergies/Adverse Reactions: Allergies Allergy/AdvReac Type Severity Reaction Status Date / Time latex Allergy Severe Blisters Verified 01/27/18 16:42 Influenza Virus Vaccines Allergy Intermediate Hives Verified 01/27/18 16:42 adhesive tape Allergy Mild RASH Verified 01/27/18 16:42 pecan nut Allergy Mild Hives Verified 01/27/18 16:42 wheat Allergy Mild Hives Verified 01/27/18 16:42 lactose AdvReac Mild GI Verified 01/27/18 16:42 STAINLESS STEEL Allergy Mild local rash Uncoded 01/27/18 16:42 Home Medications: HOME MEDICATIONS Loratadine [Allergy Relief] 10 mg PO DAILY 07/02/17 [Last Taken Unknown] Lactobacillus 40-Bifidobact 3-S.thermophilus 100 billion cell capsule 2 cap PO .COMPLEX cap 09/24/17 [Last Taken Unknown] diphenhydramine 25 mg capsule 25 mg PO HS PRN 09/24/17 [Last Taken Unknown] estradiol 1 mg tablet 1 mg PO DAILY 09/24/17 [Last Taken Unknown] ibuprofen 800 mg tablet 600 mg PO BID PRN tab 09/24/17 [Last Taken Unknown] ranitidine 150 mg tablet 150 mg PO BID 09/24/17 [Last Taken Unknown] metoprolol succinate ER 100 mg tablet,extended release 24 hr 100 mg PO DAILY #30 tab 10/29/17 [Last Taken Unknown] clindamycin 1 % lotion 1 applic TP BID 12/30/17 [Last Taken Unknown] magnesium hydroxide 400 mg/5 mL oral suspension 5 ml PO HS PRN 12/30/17 [Last Taken Unknown] Diclofenac Sodium [Diclofenac 1% Topical Gel] 1 appl TP QID 01/27/18 [Last Taken Unknown] Doxycycline Hyclate 100 mg PO BID 01/27/18 [Last Taken Unknown] tiZANidine HCL [Tizanidine HCl] 4 mg PO HS 01/27/18 [Last Taken Unknown] Exam - Exam Vital Signs: Vital Signs - Last Taken Temp 36.9 C 01/27/18 16:27 Pulse 84 01/27/18 16:27 Resp 17 01/27/18 16:27 BP 112/78 01/27/18 16:27 Pulse Ox 96 01/27/18 16:27 Constitutional: Present: Alert, Oriented x3 ENT Exam: Present: normal ENT inspection Eye Exam: bilateral eye: normal inspection, EOMI Neck: Present: non-tender, full range of motion Back Exam: Present: normal inspection, no CVA tenderness Breasts: Present: Exam deferred Respiratory: Present: lungs clear. Absent: chest non-tender - LUQ ttp Cardiovascular/Chest: Present: normal peripheral pulses, regular rate, rhythm, no edema. Absent: no chest tenderness Abdomen: Present: Normal bowel sounds, soft /Rectal: Present: Exam deferred Skin Exam: Present: normal color, warm/dry. Absent: diaphoresis Neurologic: Present: vice president mission integration II-XII nml as tested, normal mood/affect Appearance: Present: appropriate appearance Eye contact: Present: cooperative, good eye contact Thoughts: Present: normal thought pattern, normal mood /affect Diagnostic Studies: Abnormal Lab Results 01/27/18 Range/Units 14:25 Random Glucose 121 H (70-110) mg/dL ALT 98 H (19-67) U/L Laboratory Results WBC 8.1 K/mm3 (4.0-10.5) 01/27/18 14:25 RBC 4.53 M/mm3 (4.2-5.4) 01/27/18 14:25 Hgb 13.7 gm/dL (12.5-16.0) 01/27/18 14:25 Hct 40.8 % (37.0-47.0) 01/27/18 14:25 MCV 90.1 fl (78-100) 01/27/18 14:25 MCH 30.2 pg (27-31) 01/27/18 14:25 MCHC 33.6 g/dl (32-36) 01/27/18 14:25 RDW 12.5 % (11.5-14.0) 01/27/18 14:25 Plt Count 338 K/mm3 (150-450) 01/27/18 14:25 MPV 9.4 fl (8-12.5) 01/27/18 14:25 Immature Gran % (Auto) 0.20 % (0.001-0.429) 01/27/18 14:25 Immature Gran # (Auto) 0.02 K/mm3 (0.000-0.0310) 01/27/18 14:25 Neutrophils % 59.7 % (42-75.0) 01/27/18 14:25 Lymphocytes % 29.8 % (20-51) 01/27/18 14:25 Monocytes % 8.7 % (0.0-9) 01/27/18 14:25 Eosinophils % 1.1 % (0.0-3.0) 01/27/18 14:25 Basophils % 0.5 % (0.0-1.0) 01/27/18 14:25 Nucleated RBC % 0.0 k/mm3 (0-1) 01/27/18 14:25 Neutrophils # 4.8 K/mm3 (1.3-6.0) 01/27/18 14:25 Lymphocytes # 2.41 k/mm3 (1.5-3.5) 01/27/18 14:25 Monocytes # 0.7 k/mm3 (0.0-1.0) 01/27/18 14:25 Eosinophils # 0.1 k/mm3 (0.0-0.7) 01/27/18 14:25 Absolute Basophils 0.0 k/mm3 (0.0-0.1) 01/27/18 14:25 PT 10.3 Seconds (9.0-11.0) 01/27/18 14:25 INR (Anticoag Therapy) 1.03 INR (0.90-1.10) 01/27/18 14:25 PTT (Curtis) 24.1 Seconds (24-32) 01/27/18 14:25 Sodium 137 mmol/L (132-142) 01/27/18 14:25 Plasma Sodium 137 mmol/L (130-142) 01/27/18 14:25 Potassium 3.7 mmol/L (3.4-4.6) 01/27/18 14:25 Chloride 104 mmol/L (97-106) 01/27/18 14:25 Carbon Dioxide 27.4 mmol/L (24-32.6) 01/27/18 14:25 Anion Gap 9.3 mmol/L (6.8-13.8) 01/27/18 14:25 BUN 18 mg/dL (3-23) 01/27/18 14:25 Creatinine 1.01 mg/dL (0.4-1.4) 01/27/18 14:25 Est GFR (Non-Af Amer) 64 mL/min (60-130) 01/27/18 14:25 BUN/Creatinine Ratio 17.8 (9.0-21.6) 01/27/18 14:25 Random Glucose 121 mg/dL (70-110) H 01/27/18 14:25 Calcium 8.8 mg/dL (7.9-10.9) 01/27/18 14:25 Calcium Adj for Albumin 8.7 mg/dL (8.4-10.2) 01/27/18 14:25 Total Bilirubin 0.3 mg/dL (0.0-1.1) 01/27/18 14:25 AST 42 U/L (0-48) 01/27/18 14:25 ALT 98 U/L (19-67) H 01/27/18 14:25 Alkaline Phosphatase 69 U/L (50-170) 01/27/18 14:25 Troponin I Less than 0.017 ng/mL (0.00-0.10) 01/27/18 14:25 Total Protein 7.9 gm/dL (6.2-8.2) 01/27/18 14:25 Albumin 3.7 gm/dl (3.4-5.0) 01/27/18 14:25 Assessment/Plan - Narrative Narrative: Unsure of etiology though this does not appear to be cardiac in nature. Patient endorses palpitations and racing heart while having chest pain. She is currently followed by doctor Aly but no official pathology has been identified. She has worn a loop recorder which captured no arrhythmias. She has never had a stress t est which would be advised as she has significant family cardiac hx in those younger than her. Her chest pain is also reproducible to palpation which makes it more likely to be cardiac in nature. Nuclear Stress test scheduled for tomorrow. Initial trop was negative, scheduled for repeat. EKG reviewed, NSR with occasional PAC. VSS have been stable. Her BP is well controlled currently, no changes at this time. She does have a hx of GERD, will continue her antacid med, this may be causing some of her issues. May need to adjust her medications if remainder of cardiac workup remains negative. All labs reviewed, mildly elevated glucose and elevated AST, rest found to be accptable. - Assessment/Plan (1) Chest pain Problem: Acute Qualifiers: Chest pain type: unspecified Qualified Code(s): R07.9 - Chest pain, unspecified (2) Hypertension Problem: Acute (3) GERD (gastroesophageal reflux disease) Problem: Acute (4) Palpitations Problem: Acute
[2018-01-27] MEDS ORDERED: LISINOPRIL 5 MG TABLET ONE (17:46)
[2018-01-27] MEDS: LISINOPRIL 2.5 MG TABLET PO SCH (17:52)
[2018-01-27] MEDS: FAMOTIDINE 20 MG TABLET PO SCH (20:27)
[2018-01-27] MEDS ORDERED: tiZANidine HCL 4 MG TABLET PO SCH (21:00)
[2018-01-28] MEDS ORDERED: METOPROLOL SUCCINATE 100 MG TABLET.SA PO SCH (09:00)
[2018-01-28] MEDS ORDERED: ROSUVASTATIN CALCIUM 20 MG TABLET PO SCH (09:00)
[2018-01-28] MEDS ORDERED: ASPIRIN 81 MG TAB.CHEW PO SCH (09:00)
[2018-01-28] MEDS ORDERED: Regadenoson 0.1 MG UNIT IV ONE (11:15)
[2018-01-28] MEDS ORDERED: Regadenoson 0.08 MG/ML SYRG IV ONE (11:15)
[2018-01-28] MEDS: FAMOTIDINE 20 MG TABLET PO SCH (12:29)
[2018-01-28] MEDS: LISINOPRIL 2.5 MG TABLET PO SCH (12:32)
--- NOTE | 2018-01-28 15:29 | DS ---
(1) Chest pain Diagnosis(s): This has resolved. No recurrence since resolved in the ER. Only one set of cardiac enzymes obtained but they were negative. EKG showed NSR with occasional PAC. She did well over night without any acute events. Stress test this morning was negative, recommend that she follow up with Dr. Aly as directed (appointment in 12 days) to discuss possible PCI if it is felt to be warrented. Will have her follow up with her PCP in the next 3-7 days. Problem: Acute Qualifiers: Chest pain type: unspecified Qualified Code(s): R07.9 - Chest pain, unspecified (2) Hypertension Diagnosis(s): Well controlled during stay aside from the occasional 140s systolic. Asymptomatic while here, no changes to tx plan. Problem: Acute (3) GERD (gastroesophageal reflux disease) Diagnosis(s): Stable Problem: Acute (4) Palpitations Diagnosis(s): Unsure of this. 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 Dr. Aly is considering placing an insertable cardiac exercise physiologist to see if this will identify any issues that she may be having. Problem: Acute Description of Stay: Patient was placed in observation for a chest pain work up. This has happened in the past and been negative. This stay included a benign EKG, negative cardiac enzyme lab, and a normal nuclear stress test. Her vitals were stable while she was here and she had no acute events while being on the floor. No changes to her home medications. She agrees with this course and plans to follow up with her pie topper in 12 days. She was discharged home in good condition. Labs all found to be WNL. She is to follow up with Dr. Aly in 12 days. She is to see her pcp in the next 3-7 days. Records of this stay will be sent to Dr. Aly Procedures Performed: none Results and Findings: Lab Pending Results 01/27/18 14:25: WBC 8.1, RBC 4.53, Hgb 13.7, Hct 40.8, MCV 90.1, MCH 30.2, MCHC 33.6, RDW 12.5, Plt Count 338, MPV 9.4, Immature Gran % (Auto) 0.20, Immature Gran # (Auto) 0.02, Neutrophils % 59.7, Lymphocytes % 29.8, Monocytes % 8.7, Eosinophils % 1.1, Basophils % 0.5, Nucleated RBC % 0.0, Neutrophils # 4.8, Lymphocytes # 2.41, Monocytes # 0.7, Eosinophils # 0.1, Absolute Basophils 0.0 01/27/18 14:25: PT 10.3, INR (Anticoag Therapy) 1.03, PTT (Curtis) 24.1 01/27/18 14:25: Sodium 137, Plasma Sodium 137, Potassium 3.7, Chloride 104, Carbon Dioxide 27.4, Anion Gap 9.3, BUN 18, Creatinine 1.01, Est GFR (Non-Af Amer) 64, BUN/Creatinine Ratio 17.8, Random Glucose 121 H, Calcium 8.8, Calcium Adj for Albumin 8.7, Total Bilirubin 0.3, AST 42, ALT 98 H, Alkaline Phosphatase 69, Troponin I Less than 0.017, Total Protein 7.9, Albumin 3.7 Discharge Location: Home Disposition: Home self-care Condition: Good Discharge Activity: Activity as tolerated Discharge Diet: Low fat/chol Referrals: Zenaida Cortes MD [Staff Physician] - One Week Additional Patient Instructions (free text): Please forward records from this stay including stress test results to Dr Aly's office. Patient already has an appointment scheduled with Dr Aly in less than 2 weeks. Prescriptions (Any new or edited meds): Nitroglycerin 0.4 mg SL Q5MIN PRN #10 tab.subl PRN Reason: Chest Pain Lisinopril [Zestril] 2.5 mg PO DAILY 30 Days #30 tablet Rosuvastatin Calcium [Crestor] 20 mg PO DAILY #30 tablet Complete Home Medications List: Complete Home Medication List: Loratadine [Allergy Relief] 10 mg PO DAILY 07/02/17 Lactobacillus 40-Bifidobact 3-S.thermophilus 100 billion cell capsule 2 cap PO .COMPLEX cap 09/24/17 diphenhydramine 25 mg capsule 25 mg PO HS PRN 09/24/17 estradiol 1 mg tablet 1 mg PO DAILY 09/24/17 ibuprofen 800 mg tablet 600 mg PO BID PRN tab 09/24/17 ranitidine 150 mg tablet 150 mg PO BID 09/24/17 metoprolol succinate ER 100 mg tablet,extended release 24 hr 100 mg PO DAILY #30 tab 10/29/17 clindamycin 1 % lotion 1 applic TP BID 12/30/17 magnesium hydroxide 400 mg/5 mL oral suspension 5 ml PO HS PRN 12/30/17 Diclofenac Sodium [Diclofenac 1% Topical Gel] 1 appl TP QID 01/27/18 Doxycycline Hyclate 100 mg PO BID 01/27/18 tiZANidine HCL [Tizanidine HCl] 4 mg PO HS 01/27/18 Lisinopril [Zestril] 2.5 mg PO DAILY 30 Days #30 tablet 01/28/18 Nitroglycerin 0.4 mg SL Q5MIN PRN #10 tab.subl 01/28/18 Rosuvastatin Calcium [Crestor] 20 mg PO DAILY #30 tablet 01/28/18
[2018-01-28 15:57] VITALS: BP 107/70
== END 2018-01-28 16:50 | disposition home or self-care (01) ==
LOC: MS 13:49 → ER 13:49 → MS 16:22
PROVIDERS: ADMIT Family Medicine; ATTEND Family Medicine
CPT/HCPCS: 36415; 71020; 71046; 78452; 80053; 84484; 85025; 85610; 85730; 93005; 93017; 96372; 96374; 99284; A9502; G0378; J2785